=== PATIENT | female | born 1990 | race Caucasian/White ===

== ENCOUNTER 2021-09-26 14:29 | Outpatient (CLI) | payer OTHER ==
[~2021-09-26 14:29] MED LIST: COLACE 100MG C100 MG PO; IBUPROFEN600 MG PO; NORCO 5-325 TA1 EACH PO
[2021-09-26 14:50] LABS: HEMOGLOBIN 11.4 gm/dl (12.3-15.3); RED BLOOD COUNT 4.42 M/UL (4.00-5.10); WHITE BLOOD COUNT 8.4 K/UL (4.5-11.0)
[2021-09-26 15:13] LABS: BUN/CREATININE RATIO 9 (0-10)
== END 2021-09-26 20:50 | disposition home or self-care (01) ==
LOC: GENOP 14:29 → OB 16:46 → GENOP 20:50
PROVIDERS: Physician Assistant
DX: O13.3 Gestational [pregnancy-induced] hypertension without significant proteinuria, third trimester (principal); O99.281 Endocrine, nutritional and metabolic diseases complicating pregnancy, first trimester; O98.513 Other viral diseases complicating pregnancy, third trimester; O99.343 Other mental disorders complicating pregnancy, third trimester; U07.1 COVID-19; E55.9 Vitamin D deficiency, unspecified; F41.1 Generalized anxiety disorder; F33.1 Major depressive disorder, recurrent, moderate; E78.5 Hyperlipidemia, unspecified; Z3A.32 32 weeks gestation of pregnancy
CPT/HCPCS: 59025; 80053; 81001; 82570; 83615; 84156; 84550; 85025; 85610; 85730; 96360; 96372; G0378; J0702; J7120; U0002

== ENCOUNTER 2021-09-28 12:39 | Outpatient (CLI) | payer OTHER ==
[~2021-09-28] VITALS: Ht 160 cm; Wt 73.5 kg
[2021-09-28 14:06] LABS: HEMOGLOBIN 11.4 gm/dl (12.3-15.3); RED BLOOD COUNT 4.32 M/UL (4.00-5.10)
[2021-09-28 14:26] LABS: BUN/CREATININE RATIO 15 (0-10)
[2021-09-28] MEDS ORDERED: PROCARDIA XL30 MG PO (17:29)
[2021-09-28] MEDS ORDERED: OMEPRAZOLE20 MG PO (17:29)
[2021-09-28] MEDS ORDERED: ZOLOFT50 MG PO (17:31)
[2021-09-28] MEDS ORDERED: PRENATAL VITAM1 EAC5 PO (17:32)
== END 2021-09-28 19:27 | disposition home or self-care (01) ==
LOC: GENOP 12:39
PROVIDERS: Obstetrics & Gynecology
DX: O11.3 Pre-existing hypertension with pre-eclampsia, third trimester (principal); O10.913 Unspecified pre-existing hypertension complicating pregnancy, third trimester; O99.343 Other mental disorders complicating pregnancy, third trimester; F33.1 Major depressive disorder, recurrent, moderate; F41.9 Anxiety disorder, unspecified; Z88.0 Allergy status to penicillin; Z3A.32 32 weeks gestation of pregnancy
CPT/HCPCS: 36415; 59025; 80053; 81001; 82247; 82248; 82565; 82570; 83615; 84156; 84450; 84460; 84550; 85025; 85379; 85384; 85610; 85730; J3475